=== PATIENT | male | born 1965 | race African-American/Black ===

== ENCOUNTER 2020-03-19 13:20 | Observation (INO) | payer OTHER ==
[2020-03-19] MEDS ORDERED: Aspirin Chewable 81 MG TAB ONE (13:52)
[2020-03-19] MEDS ORDERED: Lidocaine Viscous Sol 2% 15 ml UD Cup ONE (13:52)
[2020-03-19] MEDS ORDERED: Nitroglycerin 2% Ointment 1 INCH/1 GM Packet ONE (13:52)
[2020-03-19] MEDS ORDERED: Mag-Al 1200 mg/1200 mg/30 ML UDCUP ONE (13:52)
--- NOTE | 2020-03-19 13:53 | RAD ---
XR Chest 1 View Portable HISTORY: Chest pain COMPARISON: 04/06/2012 FINDINGS: The heart size is normal. The lungs are well expanded without focal areas of consolidation, pneumoth orax or pleural effusions. There is minimal scarring in the left lower lung which is also seen on the previous study. There are degenerative changes in the spine. IMPRESSION: No radiographic evidence of acute cardiopulmonary process.
[2020-03-19 14:38] LABS: #Eosinphils 0.1 thou/uL (0.0-0.7); #Lymphocytes 1.4 thou/uL (1.20-3.40); #Monocytes 0.6 thou/uL (0.11-0.59); #Neutrophils 3.5 thou/uL (1.40-6.50); %Basophils 0.8 % (0.0-1.0); %Eosinophils 1.3 % (0.0-10.0); %Lymphocytes 25.4 % (21.0-51.0); %Monocytes 9.7 % (0.0-10.0); %Neutrophils 62.8 % (42.0-75.0); Hemoglobin 14.5 g/dL (14.0-18.0); Mean Corpuscular HGB CONC 32.1 g/dL (32.0-36.0); Mean Corpuscular Hemoglobin 22.7 pg (27.0-31.0); Mean Corpuscular Volume 70.6 fL (78.0-98.0); Mean Platelet Volume 10.6 fL (7.4-10.4); Platelet Count 301 thou/uL (130-400); RBC Distribution Width 16.7 % (11.5-14.5); White Blood Cell (WBC) Count 5.6 thou/uL (4.8-10.8)
[2020-03-19 14:56] LABS: ALT (SGPT) 19 U/L (8-55); AST (SGOT) 20 U/L (5-34); Albumin 4.1 g/dL (3.5-5.0); Alkaline Phosphatase 92 U/L (40-110); Anion Gap 15 mmol/L (10-20); BUN (Urea Nitrogen) 17 mg/dL (8.4-25.7); Bilirubin, Total 0.4 mg/dL (0.2-1.2); CK (CPK) 125 U/L (30-200); Calc. Creatinine Clearance 0 mL/min (70-130); Calcium 9.8 mg/dL (7.8-10.44); Carbon Dioxide 27 mmol/L (22-29); Chloride 98 mmol/L (98-107); Estimated GFR-MDRD 66; Globulin 4.5 g/dL (2.4-3.5); Glucose 151 mg/dL (70-105); Lipase 36 U/L (8-78); Potassium 4.8 mmol/L (3.5-5.1); Protein, Total 8.6 g/dL (6.0-8.3); Sodium 135 mmol/L (136-145)
[2020-03-19 15:09] LABS: MDiff Complete? YES; Microcytosis SLIGHT = 6-15 cells (100X) (0-5/hpf); Platelet Morphology Comment Appears Adequate; Polychromasia SLIGHT = 2-3 cells (100X) (0-2/hpf); Target Cells SLIGHT = 2-5 cells (100X) (0-1/hpf)
[2020-03-19] MEDS ORDERED: Nitroglycerin 0.4 MG TAB (25 Tab Bottle) PO PRN (16:54)
[2020-03-19] MEDS ORDERED: Dextrose 50% Abboject 50 ML SYRINGE SLOW IVP PRN (16:57)
[2020-03-19] MEDS ORDERED: Insulin Regular 300 UNITS/3 ML VIAL SC PRN ×2 (16:57)
[2020-03-19] MEDS ORDERED: Dextrose 5% in Water 1,000 ML IV PRN (16:57)
[2020-03-19] MEDS ORDERED: Acetaminophen 325 MG TAB PO PRN (16:58)
[2020-03-19] MEDS ORDERED: Calcium Carbonate 500 MG ChewTAB PO PRN (16:58)
[2020-03-19] MEDS ORDERED: Senokot S 8.6-50 MG TAB PO PRN (16:58)
[2020-03-19] MEDS ORDERED: Ondansetron ODT 4 MG TAB PO PRN (16:58)
--- NOTE | 2020-03-19 17:53 | HP ---
PRIMARY CARE PHYSICIAN: ANGELICA ANDERSON MD CHIEF COMPLAINT: Chest pain x3 days. HISTORY OF PRESENT ILLNESS: The patient is a 54-year-old male with a past medical history significant for hypertension, diabetes 2, hyperlipidemia, and CAD x1 stent, who presents for the above complaint. The patient reports developing chest pain 3 days ago after eating a hot dog with chili cheese Frito pie. He reports that the chest pain is in mid sternum, radiates to the back and left arm. He reports that the pain was exacerbated with exertion and lying flat. The pain was relieved by nothing. He reports a 7/10 pain that is constant, dull, and aching. He reports some associated shortness of breath. The patient reports that his chest pain was exacerbated today when he was laying in an MRI machine for chronic right hip pain. He denies any nausea and vomiting. He denies any lightheadedness. He denies any swelling to his lower extremities. He has no history of COPD or asthma. He has no history of DVT or PE. He denies any illicit drug use. The patient was brought to the ER. In the ER, the patient was found to be hypertensive in moderate distress. He was afebrile. EKG was normal sinus rhythm, 94 beats per minute. He had a Q-wave in V1 and V2. Chest x-ray was negative. Initial troponin was negative. CPK was 125. His CMP and CBC were unremarkable. He was given nitroglycerin paste, aspirin, and a GI cocktail and his pain has now rated 4/ 10. PAST MEDICAL HISTORY: 1. Hypertension. 2. Diabetes 2. 3. Hyperlipidemia. 4. GERD. 5. CAD. PAST SURGICAL HISTORY: 1. CAD with one stent in 2016. 2. Appendectomy. SOCIAL HISTORY: The patient lives in [place] with his fiana paulae at home. He drinks alcohol socially. He denies any smoking or illicit drug use. He works for the [employer]. FAMILY HISTORY: Contributory for cardiac disease. ALLERGIES: NO KNOWN DRUG ALLERGIES. HOME MEDICATIONS: The patient is unable to reconcile home medications at bedside. REVIEW OF SYSTEMS: All other review of systems are negative unless otherwise stated in the HPI. PHYSICAL EXAMINATION: VITAL SIGNS: Temperature 98.1 oral, blood pressure 178/112, pulse 97, respirations 18, 99% on room air, 7/10 pain. CONSTITUTIONAL: Hypertensive, moderate distress. Nontoxic in appearance. Oriented to person, place, and time. HEENT: Head; atraumatic, normocephalic. Eyes; PERRLA. Extraocular muscles intact. Sclerae nonicteric. ENT, nares patent bilaterally. TMs intact bilaterally. Oropharynx is clear. Uvula midline. Moist mucous membranes. No oral lesions. NECK: Supple. Trachea midline. No JVD. No neck stiffness. No cervical lymphadenopathy. RESPIRATORY: Respirations even and nonlabored. No rhonchi, wheezes, or rales. CARDIAC: S1, S2 appreciated. No murmurs, rubs, or gallops. ABDOMEN: Soft, nontender. Active bowel sounds in all quadrants. No guarding, rigidity, rebound. Negative Rovsing sign and negative Bush sign. No abdominal bruit auscultated. EXTREMITIES: Upper extremities; full range of motion. Strength normal. Sensation intact. Palpable radial pulses. Lower extremities, full range of motion. Strength normal. Sensation intact. No swelling. Palpable pedal pulses. BACK: Full range of motion. No central spinal tenderness. No CVA tenderness. NEUROLOGIC: The patient is alert and oriented to person, place, and time. No focal deficits. Sensation intact. Gait normal. PSYCHIATRIC: No suicidal or homicidal ideation. Normal affect. LABS AND DIAGNOSTICS: EKG; sinus rhythm, 94 beats per minute. Q-waves in V1 and V2. Chest x-ray, negative. Troponin, negative. CPK 125. Sodium 135, potassium 4.8, chloride 98, CO2 of 27, BUN 17, creatinine 1.36, glucose 151, lipase 36. Bilirubin 0.4, ALP 92, AST 20, ALT is 19. WBC 5.6, hemoglobin 14.5, hematocrit 45.2, platelets 301. IMPRESSION AND PLAN: 1. Chest pain. We will admit the patient to telemetry floor observation status. Expected length of stay less than 2 midnights. The patient presented hypertensive in moderate distress with chest pain over the past 3 days after eating a hot dog and chili Frito pie. HEART score is a 4. Wells' score is zero. The patient had a recent echo on 02/[address] 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 He reports that it was a normal echocardiogram. He declined cardiac stress test at that time due to cost of 600 to 800 dollars. We will request results of the echocardiogram. We will continue to trend troponins. We will continue aspirin and nitroglycerin paste. We will check TSH, fasting lipid, and BNP. We will order nuclear medicine cardiac stress test. 2. Hypertension. The patient presented with hypertensive. Currently, blood pressure stable 130/86 with nitroglycerin paste. We will continue nitroglycerin paste. We will need patient to reconcile home medications. He reports taking lisinopril of unknown dose for hypertension. 3. Hyperlipidemia. The patient reports taking Lipitor, unknown dose. We will check fasting lipid profile, and we will get nursing to reconcile home dose of Lipitor. We will restart once reconciled. 4. Diabetes 2. The patient reports taking metformin, Tresiba, and NovoLog twice a day with meals. We will start moderate sliding scale. We will check Accu-Cheks a.c. and at bedtime. We will hold home diabetic medications for now. 5. Crohn disease. The patient reports taking mesalamine, unknown dosage. We will get nursing to reconcile home medication. We will restart mesalamine when reconciled by nursing. 6. Protonix for gastrointestinal prophylaxis. SCDs for deep venous thrombosis prophylaxis. The patient is a full code. His medical decision maker is Isael Washington, his fiancee, [phone]. 7. Discussed the case with Dr. Conrda. Job ID: [id number] MTDD
[2020-03-19 19:53] VITALS: BMI 25.7
[2020-03-19] MEDS ORDERED: Atorvastatin Calcium 20 MG TAB PO SCH (21:00)
[2020-03-19] MEDS: Sodium Chloride 0.9% 1,000 ML IV SCH (21:12)
[2020-03-19] MEDS: Nitroglycerin 2% Ointment 1 INCH/1 GM Packet TOP SCH (21:12)
[2020-03-19 21:55] LABS: Troponin I Less than 0.010 ng/mL (< 0.028)
[2020-03-19 22:29] LABS: Bacteria/HPF None Seen HPF (None Seen); Bilirubin Negative (Negative); Blood, Urine Negative (Negative); Clarity Clear (Clear); Glucose, Urine (Dipstick) Greater than 1000 mg/dL (Negative); Ketone, Urine Negative (Negative); Leukocyte Negative Leu/uL (Negative); Nitrite Negative (Negative); Protein, Urine (Dipstick) Negative (Neg-Trace); RBC/HPF 0-3 HPF (0-3); Specific Gravity, Urine 1.012 (1.002-1.036); Squamous Epithelial 0-3 HPF (0-3); Urobilinogen Normal mg/dL (Less than 2); WBC/HPF None Seen HPF (0-3)
[2020-03-20 04:45] LABS: #Eosinphils 0.1 thou/uL (0.0-0.7); #Lymphocytes 1.4 thou/uL (1.20-3.40); #Monocytes 0.5 thou/uL (0.11-0.59); #Neutrophils 2.8 thou/uL (1.40-6.50); %Basophils 0.8 % (0.0-1.0); %Eosinophils 1.5 % (0.0-10.0); %Lymphocytes 29.8 % (21.0-51.0); %Monocytes 10.8 % (0.0-10.0); %Neutrophils 57.1 % (42.0-75.0); Hemoglobin 13.3 g/dL (14.0-18.0); Mean Corpuscular HGB CONC 33.5 g/dL (32.0-36.0); Mean Corpuscular Hemoglobin 23.3 pg (27.0-31.0); Mean Corpuscular Volume 69.5 fL (78.0-98.0); Mean Platelet Volume 11.4 fL (7.4-10.4); Platelet Count 282 thou/uL (130-400); RBC Distribution Width 16.8 % (11.5-14.5); Red Blood Cell (RBC) Count 5.71 mill/uL (4.70-6.10); White Blood Cell (WBC) Count 4.9 thou/uL (4.8-10.8)
[2020-03-20 05:11] LABS: Anion Gap 13 mmol/L (10-20); BUN (Urea Nitrogen) 17 mg/dL (8.4-25.7); Calc. Creatinine Clearance 60 mL/min (70-130); Calcium 9.1 mg/dL (7.8-10.44); Carbon Dioxide 27 mmol/L (22-29); Cardiac Risk 4.5 (Less than 4.5); Chloride 102 mmol/L (98-107); Cholesterol 147 mg/dl (< 200 Desired); Estimated GFR-MDRD 59; Glucose 201 mg/dL (70-105); HDL Cholesterol 33 mg/dL (>60 Neg Risk); LDL Cholesterol, Calculated 90 mg/dL; Potassium 4.2 mmol/L (3.5-5.1); Sodium 138 mmol/L (136-145); Triglycerides 121 mg/dL (Less than 150)
[2020-03-20] MEDS: Nitroglycerin 2% Ointment 1 INCH/1 GM Packet TOP SCH ×2 (07:48→16:18)
[2020-03-20] MEDS: Sodium Chloride 0.9% 1,000 ML IV SCH (08:18)
[2020-03-20] MEDS ORDERED: Non-Formulary Item 1 EACH (Levemir Flexpen [Levemir Flexpen] 20 UNIT) SC SCH (09:00)
[2020-03-20] MEDS ORDERED: MESALAMINE 1.2 GM PO SCH (09:00)
[2020-03-20] MEDS ORDERED: Insulin Glargine 20 UNITS in Pre-Filled Syringe 1 EACH SC SCH (09:00)
[2020-03-20] MEDS ORDERED: Aspirin 81 mg Enteric Coated Tablet PO SCH (09:00)
[2020-03-20] MEDS ORDERED: ADENOSINE 60 MG/20 ML VIAL ONE (09:46)
[2020-03-20 11:47] VITALS: BP 117/70; TEMP 97.8
--- NOTE | 2020-03-20 15:36 | NM ---
EXAM: CARDIAC SPECT HISTORY: Chest pain, hypertension, diabetes, coronary artery disease, stent, shortness of breath TECHNIQUE: A myocardial perfusion scan was performed using the single isotope 1 day protocol with gabe hnetium 99m sestamibi. [10 mCi] was injected intravenously for the rest exam followed by 30 mCi for the stress study. Pharmacologic stress with adenosine was monitored and interpreted by Jennifer Bedolla nurse practitioner FINDINGS: Homogeneous tracer distribution is seen in the myocardial segments on stress and rest image s without fixed or reversible defects. Gated SPECT LVEF: 66% Wall motion exam: Normal IMPRESSION: Normal myocardial perfusion scan
--- NOTE | 2020-03-20 22:03 | DIS ---
DATE OF ADMISSION: 03/19/2020 DATE OF DISCHARGE: 03/20/2020 DISCHARGE DIAGNOSES: 1. Chest pain, likely esophageal spasms with reflux. 2. Coronary artery disease, chronic and stable. 3. Diabetes mellitus type 2, insulin requiring. 4. Hypertension, stable. 5. Hyperlipidemia. 6. Gastroesophageal reflux disease. CONSULTATIONS: None. PERTINENT LABORATORY AND X-RAY FINDINGS: Creatinine ranged between 1.36 to 1.50. Estimated GFR ranged between 59 to 66. Magnesium 2.1. LFTs within normal limits. Troponin I negative x3. BNP 10. Lipase 36. TSH 1.26. Total cholesterol 147, triglycerides 121, HDL 33, LDL 90. CBC within normal limits. Portable chest x-ray dated 03/19/2020, showed no acute cardiopulmonary process. Cardiolite stress test dated 03/20/2020, showed no evidence for reversible or fixed ischemia with calculated ejection fraction of 66%. HOSPITAL COURSE: The patient was observed on the telemetry unit after initially presenting with chest pain in the context of diabetes mellitus, hypertension, and prior coronary artery disease. The patient underwent serial cardiac biomarkers, which were negative x3, proceeding to Cardiolite stress testing showing no evidence for reversible or fixed ischemia with calculated ejection fraction of 66%. Telemetry monitoring showed no acute arrhythmia or dysrhythmia and metabolic screening was essentially unremarkable. The patient's symptomatology consistent with gastroesophageal reflux with recommendations to increase Protonix to 40 mg b.i.d. Overall, the patient remained clinically stable during the hospital course. I have examined the patient at the time of discharge and discussed followup instructions. The patient verbalizes understanding and agreement ready for discharge on 03/20/2020. DISCHARGE MEDICATIONS: 1. Lipitor 20 mg p.o. daily. 2. Jardiance 25 mg p.o. daily. 3. Amaryl 4 mg p.o. q.a.m. 4. NovoLog 10 units subcutaneously t.i.d. with meals. 5. Levemir 20 units subcutaneously daily. 6. Tradjenta 5 mg p.o. daily. 7. Mesalamine 1.2 g three tablets p.o. daily. 8. Metformin 1000 mg p.o. b.i.d. 9. Cialis 10 mg p.o. daily p.r.n. 10. Enteric-coated aspirin 81 mg p.o. daily. 11. Protonix 40 mg p.o. b.i.d. FOLLOWUP: The patient may follow up with Dr. Onel Henrandez within 7 days of discharge. CONDITION ON DISCHARGE: Stable. ACTIVITY: Ad shruti. DIET: Heart healthy and ADA. CODE STATUS: Full. DISPOSITION: Home on 03/20/2020. Job ID: [id number]
--- NOTE | 2020-03-28 15:18 | STRESS ---
Acquisition Time: 2020-03-20 13:49:43 Total Exercise Time: 00:04:00 Test Indications: CHEST PAIN Medications: Protocol: ADENOSINE Max HR: 111 BPM 67% of Pred: 164 BPM Max BP: 126/080 mmHG Max Work Load: 1.0 METS RESTING ECG: NORMAL SINUS RHYTHM AT 91 BPM SYMPTOMS: NONE NORMAL BLOOD PRESSURE RESPONSE ECTOPY: NONE ECG RESPONSE: NO SIGNIFICANT CHANGES INTERPRETATION: INDETERMINATE ECG/AWAIT NUCLEAR IMAGES FOR DEFINITIVE DIAGNOSIS Confirmed by DEBORA FLORES ([id number]) on 03/28/2020 3:18:27 PM Referred By: Laurel PITNO Confirmed By:DEBORA FLORES
== END 2020-03-20 16:49 | disposition home or self-care (01) ==
LOC: ERS 13:20 → 2NO 16:20
PROVIDERS: ADMIT Internal Medicine; ATTEND Internal Medicine
DX: R07.9 Chest pain, unspecified (principal); I25.10 Atherosclerotic heart disease of native coronary artery without angina pectoris; E11.9 Type 2 diabetes mellitus without complications; I10 Essential (primary) hypertension; E78.00 Pure hypercholesterolemia, unspecified; E78.5 Hyperlipidemia, unspecified; K21.9 Gastro-esophageal reflux disease without esophagitis; K50.90 Crohn's disease, unspecified, without complications; Z79.4 Long term (current) use of insulin; Z79.899 Other long term (current) drug therapy; Z95.5 Presence of coronary angioplasty implant and graft
CPT/HCPCS: 36415; 36416; 71045; 78452; 80048; 80053; 80061; 81001; 82550; 83690; 83735; 83880; 84443; 84484; 85025; 93005; 93017; 94760; 96360; 96361; A9500; G0378; J0153; J1815

== ENCOUNTER 2020-07-16 08:15 | Outpatient (CLI) | payer OTHER ==
--- NOTE | 2020-07-16 09:52 | CT ---
CT Abdomen Pelvis W WO con: 07/16/2020 12:00 AM CLINICAL INFORMATION: Crohn's disease with right-sided abdominal pain COMPARISON: CT abdomen/pelvis 08/01/2019, 07/24/2015; MRI abdomen 11/10/2015 TECHNIQUE: Multiple contiguous axial images were obtained and a CT of the abdomen and pelvis without and with IV contrast. Postcontrast images were obtained in the arterial and portal venous phases. Oral contrast was administered. Coronal and sagittal reformats were performed. FINDINGS: Lower Chest: within normal limits. Abdomen: Liver: within normal limits. Bile Ducts: Normal caliber. Gallbladder: No calcified gallstones. Normal caliber wall. Pancreas: within normal limits. Spleen: within normal limits. Adrenals: within normal limits. Kidneys: within normal limits. No renal calculi. Pelvis: Reproductive Organs: No pelvic masses. Ureters: within normal limits. Bladder: within normal limits. Peritoneum: No ascites or free air, no fluid collection. Bowel: Normal caliber. Postsurgical changes are seen in the cecum. There is no thickening of the wall of the colon or terminal ileum. Moderate stool retention is seen in the left colon. Mesentery and Retroperitoneum: No enlarged mesenteric or retroperitoneal lymph nodes. There are stabl e calcifications within a lymph node anterior to the inferior vena cava in the region of the jorge hepatis. Vessels: Normal. Abdominal Wall: within normal limits. Bones: Degenerative changes in the spine. There is fusion of the sacroiliac joints. IMPRESSION: No evidence of acute intraabdominal or pelvic abnormality.
== END 2020-07-16 08:16 | disposition home or self-care (01) ==
LOC: CT 08:15
PROVIDERS: ATTEND Internal Medicine Gastroenterology
DX: K50.90 Crohn's disease, unspecified, without complications (principal)
CPT/HCPCS: 74178